=== PATIENT | male | born 1950 | race Caucasian/White ===

== ENCOUNTER → 2016-08-19 | Outpatient (REF) | payer MEDICARE, BC ==
[~2016-08-19] MED LIST: CIPR500T3 PO; FISH100049 PO; GLYB5TA PO; METF1000 PO; METO25TAB PO; OMEP40CA2 PO; PERCOCET PO; PRAD150C PO; PRAV10TA PO; VALS320T PO; ZYLO300T4 PO
== END ==
LOC: M SMT 16:45
PROVIDERS: ATTEND Urology
DX: R39.15 Urgency of urination (principal)
CPT/HCPCS: 51798; 81001; 87086; G0463

== ENCOUNTER → 2016-11-10 | Outpatient (CLI) | payer MEDICARE, BC ==
--- NOTE | 2016-11-10 10:36 | REP ---
CT ABDOMEN/PELVIS WITHOUT CONTRAST: CT abdomen/pelvis performed without IV contrast with sagittal and coronal reconstruction images. Minimal fibrotic changes are seen in the visualized lung bases. Liver, spleen, adrenals are grossly unremarkable. A few tiny scattered pancreatic calcifications are seen without pancreatic mass. Findings suggest prior pancreatitis. Kidneys demonstrate a few small intrarenal calculi. The largest is in the lower pole collecting system on the right measuring 6 mm in diameter. A few smaller calcifications in the region of the right renal hilum are felt to be vascular. The three other tiny rebeca-like calcifications in the region of the right renal pelvis could represent tiny intrarenal stones. There are also vascular calcifications in the right renal hilum. There is a 3 mm stone in the lower pole of the left renal collecting system. Again, about three other tiny rebeca-like calcifications in the region of the left renal collecting system could represent tiny renal stones. There is no hydroureteronephrosis. No ureteral calculi are seen. Abdominal aorta demonstrates ectasia up to 2.9 cm with moderate atherosclerotic calcifications. No adenopathy is seen. There is no free air. Tiny amount of free fluid is seen in the pelvis. I see no bowel wall thickening. The appendix is normal. The urinary bladder is not distended and not well evaluated. There are degenerative changes of the spine. There is spondylolysis of L5 with mild anterior grade 1 spondylolisthesis of L5 on S1. A sclerotic density in the right femoral head probably represents a benign bone island with no other lesions identified in the visualized osseous structures. There is sigmoid diverticulosis without acute diverticulitis. IMPRESSION: There appear to be a few small intrarenal calculi bilaterally. No ureteral calculi and no hydroureteronephrosis. Tiny amount of free fluid in the pelvis. Small right renal cyst. Signed by Michael Silva MD 11/10/2016 04:45 P
== END ==
LOC: M RAD 08:50
PROVIDERS: ATTEND Nurse Practitioner Women's Health
DX: N28.1 Cyst of kidney, acquired (principal); M43.06 Spondylolysis, lumbar region; K57.30 Diverticulosis of large intestine without perforation or abscess without bleeding; R10.9 Unspecified abdominal pain; R31.0 Gross hematuria
CPT/HCPCS: 74176; G0463

== ENCOUNTER → 2016-11-24 | Outpatient (REF) | payer MEDICARE, BC ==
[2016-11-24 20:22] LABS: CALCIUM OXALATE CRYSTALS SMALL
== END ==
LOC: M SMT 17:03
PROVIDERS: ATTEND Urology
DX: R31.0 Gross hematuria (principal)
CPT/HCPCS: 81001; 87086; G0463

== ENCOUNTER → 2016-12-14 | Outpatient (CLI) | payer MEDICARE, BC ==
--- NOTE | 2016-12-14 11:51 | REP ---
CT ABDOMEN AND PELVIS WITHOUT CONTRAST: CT abdomen and pelvis is performed without oral or IV contrast, with sagittal and coronal reconstruction images performed. Comparison is made with a prior study of 11/10/2016. The visualized lung bases are clear. The liver, gallbladder, spleen, adrenals and pancreas are grossly unremarkable. There is a cyst in the upper pole of the right kidney and another cyst is seen in the lower pole of the left kidney. Multiple intrarenal calcifications are stable. Some of these appear to represent vascular calcifications while others represent calculi. There are moderate atherosclerotic calcifications of the abdominal aorta. There is ectasia of the distal abdominal aorta up to a maximum AP diameter of 2.9 cm. There is no adenopathy. There is no free air or free fluid. No bowel wall thickening is seen. The appendix is normal. There appear to be sigmoid diverticula present. The urinary bladder is not well distended and not well evaluated. There is spondylolysis of L5 with minimal anterior spondylolisthesis of L5 on S1. Sclerotic densities in the right femoral head are again seen unchanged. These most likely represent benign bone islands. IMPRESSION: No change since the prior exam as discussed in detail above. Signed by Michael Silva MD 12/14/2016 12:54 P
== END ==
LOC: M RAD 10:55
PROVIDERS: ATTEND Urology
DX: R31.0 Gross hematuria (principal)

== ENCOUNTER → 2017-03-21 | Outpatient (REF) | payer MEDICARE, BC ==
[~2017-03-21] MED LIST changes: -METF1000 PO; +METF10004 PO; +METO25TA4 PO; -METO25TAB PO; -PRAV10TA PO; +PRAV10TA4 PO
== END ==
LOC: M SMT 14:04
PROVIDERS: ATTEND Urology
DX: Z08 Encounter for follow-up examination after completed treatment for malignant neoplasm (principal); Z85.46 Personal history of malignant neoplasm of prostate; Z79.899 Other long term (current) drug therapy
CPT/HCPCS: 51798; 81001; 87088; 87186; G0463

== ENCOUNTER → 2017-06-21 | Outpatient (REF) | payer MEDICARE, BC | LOC: M SMT 17:17 | PROVIDERS: ATTEND Nurse Practitioner Women's Health | DX: R31.29 Other microscopic hematuria (principal) ==

== ENCOUNTER → 2017-06-28 | Outpatient (CLI) | payer MEDICARE, BC ==
--- NOTE | 2017-06-29 15:39 | REP ---
CT abdomen and pelvis without IV or oral contrast: History: Flank pain. Kidney stones. Comparison CT study is from December 14, 2016. CT findings: Preliminary digital dimensional engineer radiograph shows an unremarkable bowel gas pattern. The lung bases are clear on axial CT images. No pleural effusion or upper abdominal ascites. The liver and the spleen are normal in size and homogeneous in texture. No adrenal lesion is seen. There is a faint opacity in the dependent portion of the gallbladder raising question of gallstones. No biliary ductal dilation is observed. No pancreatic mass is seen. There is fairly prominent vascular calcification in the upper abdominal arteries. Mild ectasia of the abdominal aorta is seen, no aneurysm. Maximum AP dimension 2.9 cm. There are multiple intrarenal calculi bilaterally. In the left kidney, there are 6 to 7 separate calculi ranging up to 5 mm in size. In the right kidney, there is a large calculus in the renal pelvis measuring 11 mm in size. This is associated with mild right-sided hydronephrosis. There are several other intrarenal calculi in the right kidney. No distal ureteral calculus is observed on either side. No bladder calculus is seen. Prostate appears to be surgically absent. Bone window settings show evidence of a bone island in the femoral head on the right, unchanged from December 14, 2016 prior study. There is bilateral L5 spondylolysis and a grade 1, 2 mm L5-S1 spondylolisthesis again noted. Degenerative disc changes are noted at L2-3, unchanged. No bony destructive lesion is appreciated. Impression: A 1.1 cm renal pelvic stone associated with mild right-sided hydronephrosis. Bilateral intrarenal calculi, multiple, on both sides. Normal appendix seen. Mild left colonic diverticulosis. No CT evidence of diverticulitis. Diffuse vascular calcification. Signed by Colin Maza MD 06/29/2017 04:58 P
== END ==
LOC: M RAD 13:00
PROVIDERS: ATTEND Nurse Practitioner Women's Health
DX: R10.9 Unspecified abdominal pain (principal); N20.0 Calculus of kidney

== ENCOUNTER 2017-07-27 10:56 | Day surgery (SDC) | payer MEDICARE, BC ==
[2017-07-27] MEDS ORDERED: ceFAZolin 2 GM/D5W 50 ML IV BAG (J0690 PER 500MG) As Ordered (11:08)
[2017-07-27] MEDS: LR 1,000 ML IV (11:42)
[2017-07-27 11:44] LABS: INR 1.23; PROTHROMBIN TIME 15.7 SECONDS (12.4-14.5)
[2017-07-27 11:46] LABS: BEDSIDE GLUCOSE 176 MG/DL (80-115)
[2017-07-27] MEDS ORDERED: LIDOCAINE 2% INJ 100 MG/5 ML SDV (FOR ANES.) As Ordered (16:11)
[2017-07-27] MEDS ORDERED: KETOROLAC 60 MG/2 ML VIAL (J1885) As Ordered (16:11)
[2017-07-27] MEDS ORDERED: fentaNYL 100 MCG/2 ML INJECTION (J3010) As Ordered (16:11)
[2017-07-27] MEDS ORDERED: PROPOFOL 200 MG/20 ML VIAL As Ordered (16:11)
[2017-07-27] MEDS ORDERED: ONDANSETRON 4MG/2ML VIAL (J2405) As Ordered (16:11)
[2017-07-27] MEDS ORDERED: MIDAZOLAM INJ 2 MG/2 ML VIAL (J2250) As Ordered (16:11)
[2017-07-27] MEDS ORDERED: dexameTHASONE 4 MG/ML 1ML VIAL (J1100) As Ordered (16:11)
[2017-07-27] MEDS: CONRAY-60 60% 50ML VIAL (Q9961) As Ordered (18:44)
[2017-07-27 19:06] LABS: BEDSIDE GLUCOSE 118 MG/DL (80-115)
[2017-07-27] MEDS ORDERED: LR 1,000 ML IV (19:15)
[2017-07-27] MEDS ORDERED: ONDANSETRON 4MG/2ML VIAL (J2405) IV (19:15)
[2017-07-27] MEDS ORDERED: fentaNYL 100 MCG/2 ML INJECTION (J3010) IV (19:15)
== END 2017-07-27 20:10 | disposition home or self-care (01) ==
LOC: M SDC 20:10
DX: N20.0 Calculus of kidney (principal); I10 Essential (primary) hypertension; I48.2 Chronic atrial fibrillation; C61 Malignant neoplasm of prostate; K21.9 Gastro-esophageal reflux disease without esophagitis; M10.9 Gout, unspecified; E11.9 Type 2 diabetes mellitus without complications; F17.200 Nicotine dependence, unspecified, uncomplicated; E78.5 Hyperlipidemia, unspecified; I49.1 Atrial premature depolarization; M19.90 Unspecified osteoarthritis, unspecified site; Z91.048 Other nonmedicinal substance allergy status; Z79.899 Other long term (current) drug therapy; Z79.84 Long term (current) use of oral hypoglycemic drugs
CPT/HCPCS: 52356

== ENCOUNTER → 2017-09-29 | Outpatient (REF) | payer MEDICARE ==
[2017-09-29 17:38] LABS: APPEARANCE, URINE CLEAR (CLEAR); BACTERIA, URINE AUTO NEGATIVE (NEGATIVE); BILIRUBIN, URINE AUTO NEGATIVE (NEGATIVE); BLOOD, URINE BLOOD 1+ (NEGATIVE); COLOR, URINE YELLOW (YELLOW); GLUCOSE, URINE (UA) AUTO 1+ mg/dL (NEGATIVE); KETONE, URINE AUTO NEGATIVE (NEGATIVE); LEUKOCYTE ESTERASE, URINE AUTO NEGATIVE (NEGATIVE); MUCUS, URINE SMALL (NEGATIVE); NITRITE, URINE AUTO NEGATIVE (NEGATIVE); PROTEIN, URINE AUTO NEGATIVE (NEGATIVE); RBC, URINE AUTO 7 /HPF (0-3); SPECIFIC GRAVITY URINE AUTO 1.017 (1.002-1.035); SQUAMOUS EPITHELIAL CELL UR AU 0 /HPF (0-6); WBC, URINE AUTO 3 /HPF (0-3)
== END ==
LOC: M SMT 16:54
DX: Z08 Encounter for follow-up examination after completed treatment for malignant neoplasm (principal); Z85.46 Personal history of malignant neoplasm of prostate; Z79.899 Other long term (current) drug therapy
CPT/HCPCS: 81001

== ENCOUNTER 2024-02-15 06:07 | Day surgery (SDC) | payer MEDICARE ==
[~2024-02-15] VITALS: Ht 180.3 cm; Wt 71.2 kg
[~2024-02-15 06:07] MED LIST changes: +ACET650T61 PO; +ALBU8.5H INH; +ALLO300T2 PO; +ATOR40TA75; +DULO1CAP6 PO; +ELIQ5TAB PO; +FLUT1BLS8 INH; +GABA600T4 PO; +GLYB-147 PO; -GLYB5TA PO; +GLYB5TAB6 PO; +LEVA1TAB2 PO; +LEVO50TA5 PO; +MAGN400C PO; +METO1TAB87 PO; +METO50TA7 PO; -OMEP40CA2 PO; +OMEP40CA4 PO; -PRAD150C PO; +PRAD150C6 PO; +VALA1TAB5 PO; -VALS320T PO; +VALS320T2 PO; +VITATAB73 PO; -ZYLO300T4 PO; +ZYLO300T6 PO
[2024-02-15] MEDS ORDERED: fentaNYL 100 MCG/2 ML INJECTION As Ordered ONE (07:14)
[2024-02-15] MEDS ORDERED: MIDAZOLAM INJ 2MG/2ML VIAL As Ordered ONE (07:14)
[2024-02-15] MEDS ORDERED: GLUCOSE 4 GM CHEW PO PRN (07:15)
[2024-02-15] MEDS ORDERED: GLUCAGON INJ 1MG VIAL SC PRN (07:15)
[2024-02-15] MEDS ORDERED: ROCURONIUM BROMIDE 50MG/5ML VIAL As Ordered ONE (07:15)
[2024-02-15] MEDS ORDERED: DEXTROSE 50% 50ML SYRINGE IV PRN (07:15)
[2024-02-15] MEDS ORDERED: propofoL 200 MG/20 ML VIAL As Ordered ONE (07:15)
[2024-02-15] MEDS ORDERED: ONDANSETRON 4MG 2ML VIAL As Ordered ONE (07:15)
[2024-02-15] MEDS ORDERED: LIDOCAINE 2% 100MG/5ML SDV (FOR ANES.) As Ordered ONE (07:15)
[2024-02-15] MEDS ORDERED: SUGAMMADEX SODIUM 500 MG/5 ML VIAL (BRIDION) As Ordered ONE (07:15)
[2024-02-15] MEDS: LR 1,000 ML IV SCH (07:23)
[2024-02-15] MEDS: ALBUTEROL SULFATE 2.5MG/0.5ML INH NEB SOLN INH STA (07:23)
[2024-02-15] MEDS: INSULIN LISPRO (NovoLOG) PER UNIT SC PRN (07:26)
[2024-02-15] MEDS: CETACAINE SPRAY 5GM As Ordered ONE (07:45)
[2024-02-15] MEDS: EPINEPHrine 1MG/10ML SYRINGE 1.5IN As Ordered ONE (07:45)
[2024-02-15] MEDS ORDERED: dexmedeTOMIDine (4MCG/ML)200MCG/50ML BTL (PRECEDEX) As Ordered ONE (07:49)
[2024-02-15] MEDS ORDERED: fentaNYL 100 MCG/2 ML INJECTION IV PRN (07:50)
[2024-02-15] MEDS ORDERED: LR 1,000 ML IV SCH (07:50)
[2024-02-15] MEDS ORDERED: ONDANSETRON 4MG 2ML VIAL IV PRN (07:50)
[2024-02-15] MEDS ORDERED: oxyCODONE 5MG TAB PO PRN (07:50)
[2024-02-15] MEDS: THROMBIN 5,000 UNITS VIAL As Ordered ONE (07:50)
[2024-02-15] MEDS ORDERED: PHENYLephrine 500MCG 5ML (100MCG/ML) SYRINGE As Ordered ONE (07:55)
[2024-02-15] MEDS ORDERED: ePHEDrine SULFATE 25 MG/5 ML(5MG/ML) SYRINGE As Ordered ONE (07:55)
[2024-02-15 09:08] VITALS: BP 122/85; TEMP 98; O2SAT 95
== END 2024-02-15 09:30 | disposition home or self-care (01) ==
LOC: M SDC 06:07
PROVIDERS: ATTEND Internal Medicine Pulmonary Disease
DX: C34.31 Malignant neoplasm of lower lobe, right bronchus or lung (principal); J44.9 Chronic obstructive pulmonary disease, unspecified; F17.218 Nicotine dependence, cigarettes, with other nicotine-induced disorders; I48.91 Unspecified atrial fibrillation; I10 Essential (primary) hypertension; E78.5 Hyperlipidemia, unspecified; E11.9 Type 2 diabetes mellitus without complications; M10.9 Gout, unspecified; E03.9 Hypothyroidism, unspecified; Z79.84 Long term (current) use of oral hypoglycemic drugs; Z79.01 Long term (current) use of anticoagulants; Z79.02 Long term (current) use of antithrombotics/antiplatelets; D64.9 Anemia, unspecified
CPT/HCPCS: 31625; 88305; J0171; J1815; J2250; J2371; J2405; J3010

== ENCOUNTER → 2024-03-13 | Outpatient (CLI) | payer MEDICARE ==
[~2024-03-13] MED LIST changes: +GABA-1490 PO; -GABA600T4 PO
== END ==
LOC: M PLARAD 12:29
PROVIDERS: ATTEND Internal Medicine Pulmonary Disease
DX: C34.81 Malignant neoplasm of overlapping sites of right bronchus and lung (principal)
CPT/HCPCS: 78815; A9552

== ENCOUNTER → 2024-03-20 | Outpatient (CLI) | payer MEDICARE ==
[~2024-03-20] MED LIST changes: +ISOVUE-370 76% 100ML VIAL As Ordered ONE
== END ==
LOC: M RAD 15:22
PROVIDERS: ATTEND Thoracic Surgery (Cardiothoracic Vascular Surgery)
DX: C34.91 Malignant neoplasm of unspecified part of right bronchus or lung (principal)

== ENCOUNTER → 2024-03-27 | Outpatient (CLI) | payer MEDICARE ==
[~2024-03-27] MED LIST changes: -ISOVUE-370 76% 100ML VIAL As Ordered ONE; +PROHANCE 279.3MG/ML 15ML VIAL As Ordered ONE
== END ==
LOC: M RAD 15:28
PROVIDERS: ATTEND Thoracic Surgery (Cardiothoracic Vascular Surgery)
DX: C34.91 Malignant neoplasm of unspecified part of right bronchus or lung (principal); Z86.73 Personal history of transient ischemic attack (TIA), and cerebral infarction without residual deficits; R90.82 White matter disease, unspecified
CPT/HCPCS: 70553; A9576

== ENCOUNTER 2024-03-28 06:00 | Day surgery (SDC) | payer MEDICARE ==
[~2024-03-28] VITALS: Ht 180.3 cm; Wt 70.1 kg
[~2024-03-28 06:00] MED LIST changes: -PROHANCE 279.3MG/ML 15ML VIAL As Ordered ONE
[2024-03-28] MEDS ORDERED: GLUCOSE 4 GM CHEW PO PRN (07:10)
[2024-03-28] MEDS ORDERED: DEXTROSE 50% 50ML SYRINGE IV PRN (07:10)
[2024-03-28] MEDS ORDERED: GLUCAGON INJ 1MG VIAL SC PRN (07:10)
[2024-03-28] MEDS ORDERED: LR 1,000 ML IV SCH (07:15)
[2024-03-28] MEDS ORDERED: ONDANSETRON 4MG 2ML VIAL As Ordered ONE (07:23)
[2024-03-28] MEDS ORDERED: LIDOCAINE 2% 100MG/5ML SDV (FOR ANES.) As Ordered ONE (07:23)
[2024-03-28] MEDS ORDERED: MIDAZOLAM INJ 2MG/2ML VIAL As Ordered ONE (07:23)
[2024-03-28] MEDS ORDERED: propofoL 200 MG/20 ML VIAL As Ordered ONE (07:23)
[2024-03-28] MEDS: ALBUTEROL SULFATE 2.5MG/0.5ML INH NEB SOLN NEB ONE (07:24)
[2024-03-28] MEDS: INSULIN LISPRO (NovoLOG) PER UNIT SC PRN (07:24)
[2024-03-28] MEDS ORDERED: fentaNYL 100 MCG/2 ML INJECTION As Ordered ONE (07:24)
[2024-03-28] MEDS ORDERED: ROCURONIUM BROMIDE 50MG/5ML VIAL As Ordered ONE (07:24)
[2024-03-28] MEDS ORDERED: ESMOLOL INJ 100MG/10ML VIAL As Ordered ONE (08:03)
[2024-03-28] MEDS ORDERED: METOPROLOL 5 MG/5 ML VIAL As Ordered ONE (08:07)
[2024-03-28] MEDS ORDERED: ePHEDrine SULFATE 25 MG/5 ML(5MG/ML) SYRINGE As Ordered ONE (08:21)
[2024-03-28] MEDS ORDERED: PHENYLephrine 500MCG 5ML (100MCG/ML) SYRINGE As Ordered ONE (08:21)
[2024-03-28] MEDS ORDERED: SUGAMMADEX SODIUM 500 MG/5 ML VIAL (BRIDION) As Ordered ONE (08:25)
[2024-03-28] MEDS: EPINEPHrine 1MG/10ML SYRINGE 1.5IN As Ordered ONE (08:40)
[2024-03-28] MEDS: THROMBIN 5,000 UNITS VIAL As Ordered ONE (08:40)
[2024-03-28] MEDS: CETACAINE SPRAY 5GM As Ordered ONE (08:40)
[2024-03-28 09:45] VITALS: BP 108/64
[2024-03-28] MEDS: METOPROLOL 5 MG/5 ML VIAL IV STA (09:45)
[2024-03-28 10:10] VITALS: BP 123/79; TEMP 97.2; O2SAT 93
== END 2024-03-28 10:30 | disposition home or self-care (01) ==
LOC: M SDC 06:00
PROVIDERS: ATTEND Internal Medicine Pulmonary Disease
DX: C77.1 Secondary and unspecified malignant neoplasm of intrathoracic lymph nodes (principal); C34.31 Malignant neoplasm of lower lobe, right bronchus or lung; I48.91 Unspecified atrial fibrillation; E11.9 Type 2 diabetes mellitus without complications; I10 Essential (primary) hypertension; E03.9 Hypothyroidism, unspecified; E78.00 Pure hypercholesterolemia, unspecified; Z79.01 Long term (current) use of anticoagulants; Z79.899 Other long term (current) drug therapy; Z79.890 Hormone replacement therapy; Z79.84 Long term (current) use of oral hypoglycemic drugs; M10.9 Gout, unspecified; Z79.51 Long term (current) use of inhaled steroids; Z85.46 Personal history of malignant neoplasm of prostate; F17.210 Nicotine dependence, cigarettes, uncomplicated; Z90.79 Acquired absence of other genital organ(s)
CPT/HCPCS: 31653; 71045; 88173; 88305; 88313; J0171; J1100; J1805; J1815; J2250; J2371; J2405; J3010

== ENCOUNTER → 2024-04-26 | Outpatient (CLI) | payer MEDICARE ==
[~2024-04-26] MED LIST changes: +ISOVUE-370 76% 100ML VIAL As Ordered ONE
== END ==
LOC: M RAD 09:58
PROVIDERS: ATTEND Thoracic Surgery (Cardiothoracic Vascular Surgery)
DX: C34.31 Malignant neoplasm of lower lobe, right bronchus or lung (principal)
CPT/HCPCS: 71260; Q9967

== ENCOUNTER 2024-06-14 13:52 | Inpatient (IN) | payer MEDICARE ==
[~2024-06-14] VITALS: Ht 172.7 cm; Wt 64.1 kg
[~2024-06-14 13:52] MED LIST changes: -ISOVUE-370 76% 100ML VIAL As Ordered ONE
[2024-06-14 14:52] LABS: VENOUS BASE EXCESS 2.1 (-2.0-2.0); VENOUS O2 SATURATION 38.9 % (60.0-80.0); VENOUS PARTIAL PRESSURE O2 23.3 mmHg (30.0-50.0); VENOUS PH 7.416 UNITS (7.330-7.430); VENOUS TOTAL CO2 28.3 MMOL/L (24.0-28.0)
[2024-06-14 14:57] LABS: BASO % 0.2 % (0.0-1.0); EOS # 0.1 10^3/uL (0.0-0.5); EOS % 0.8 % (0.0-3.0); HEMATOCRIT 36.6 % (42.0-52.0); HEMOGLOBIN 12.5 g/dl (13.5-17.5); LYMPH % 11.4 % (24.0-44.0); MEAN CORPUSCULAR HEMOGLOBIN 34.9 pg (27.0-33.0); MEAN CORPUSCULAR HGB CONC 34.2 g/dl (32.0-36.5); MEAN CORPUSCULAR VOLUME 102.2 fl (80.0-96.0); MONO # 0.7 10^3/uL (0.0-0.8); MONO % 8.2 % (2.0-8.0); NEUTROPHILS # 6.7 10^3/uL (1.5-8.5); NEUTROPHILS % 78.8 % (36.0-66.0); PLATELET COUNT, AUTOMATED 283 10^3/uL (150-450); RED BLOOD COUNT 3.58 10^6/uL (4.30-6.10); WHITE BLOOD COUNT 8.5 10^3/uL (4.0-10.0)
[2024-06-14 15:20] LABS: ETHYL ALCOHOL (ETHANOL) < 0.003 % (0.000-0.010)
[2024-06-14 15:21] LABS: ALBUMIN 1.9 G/DL (3.2-5.2); ALKALINE PHOSPHATASE 112 U/L (40-129); ALT/SGPT 21 U/L (7.0-40); AST/SGOT 27 U/L (<34); BILIRUBIN,DIRECT 0.2 MG/DL (<0.4); BILIRUBIN,TOTAL 0.5 MG/DL (0.3-1.2); BLOOD UREA NITROGEN 17 MG/DL (9-23); CALCIUM LEVEL 9.2 MG/DL (8.3-10.6); CARBON DIOXIDE LEVEL 27 MMOL/L (20-31); CHLORIDE LEVEL 101 MMOL/L (98-107); CREATININE FOR GFR 0.83 MG/DL (0.70-1.30); GLOMERULAR FILTRATION RATE > 60.0 (>42); GLUCOSE, FASTING 153 MG/DL (74-106); POTASSIUM SERUM 4.6 MMOL/L (3.5-5.1); SALICYLATE LEVEL < 3.0 MG/DL (<30); SODIUM LEVEL 136 MMOL/L (136-145); TOTAL PROTEIN 6.7 G/DL (5.7-8.2)
[2024-06-14 15:23] LABS: THYROID STIMULATING HORMONE 3.766 uIU/ML (0.55-4.78)
[2024-06-14 15:29] LABS: OSMOLALITY SERUM 293 MOSM/KG (280-301)
[2024-06-14 16:47] LABS: AMPHETAMINES LEVEL URINE NEGATIVE (NEGATIVE); BARBITURATES URINE NEGATIVE (NEGATIVE); BENZODIAZEPINES URINE NEGATIVE (NEGATIVE)
[2024-06-14 16:48] LABS: CANNABINOIDS URINE NEGATIVE (NEGATIVE); COCAINE METABOLITE URINE NEGATIVE (NEGATIVE); METHADONE URINE NEGATIVE (NEGATIVE); OPIATES URINE NEGATIVE (NEGATIVE); PHENCYCLIDINE URINE NEGATIVE (NEGATIVE)
[2024-06-14] MEDS ORDERED: DILT60CASR PO (17:16)
[2024-06-14] MEDS ORDERED: VITA100T28 PO (17:17)
[2024-06-14] MEDS ORDERED: JARD1TAB3 PO (17:18)
[2024-06-14] MEDS ORDERED: METO50TA7 PO (17:38)
[2024-06-14] MEDS ORDERED: HOME MED LIST COMPLETE! XX SCH (17:40)
[2024-06-14] MEDS ORDERED: ALBUTEROL 90 MCG/ACT 8GM HFA INHALER INH PRN (17:45)
[2024-06-14] MEDS ORDERED: LORazepam 2 MG TAB PO PRN (18:15)
[2024-06-14] MEDS: NS 1,000 ML IV SCH (18:40)
[2024-06-14] MEDS: FOLIC ACID 1MG TAB PO SCH (18:40)
[2024-06-14] MEDS: MULTIVITAMINS/MINERALS THERAP 1 TAB PO SCH (19:18)
[2024-06-14] MEDS: SYMBICORT 160/4.5MCG INHALER 6GM INH SCH (20:00)
[2024-06-14] MEDS: QUEtiapine FUMARATE 25 MG TAB PO SCH (20:48)
[2024-06-14] MEDS: GABAPENTIN 300 MG CAP PO SCH (20:48)
[2024-06-14] MEDS: APIXABAN 5 MG TAB (ELIQUIS) PO SCH (20:48)
[2024-06-14] MEDS: MAG SULF 1GM/100ML (MAG RUN) 1 GM in IV 1 EA IV SCH (20:48)
[2024-06-14 21:57] VITALS: BP 98/58; TEMP 97.2; O2SAT 93
[2024-06-14 22:20] VITALS: BP 98/58
[2024-06-14] MEDS: ACETAMINOPHEN 650MG ER TAB (TYLENOL ARTHRITIS) PO SCH (22:40)
[2024-06-15 04:02] VITALS: BP 102/66; TEMP 97; O2SAT 97
[2024-06-15 05:00] VITALS: BP 102/66
[2024-06-15] MEDS: LEVOTHYROXINE 50MCG TABLET (0.05MG) PO SCH (06:14)
[2024-06-15 07:45] LABS: HEMATOCRIT 31.4 % (42.0-52.0); HEMOGLOBIN 10.6 g/dl (13.5-17.5); MEAN CORPUSCULAR HEMOGLOBIN 34.6 pg (27.0-33.0); MEAN CORPUSCULAR HGB CONC 33.8 g/dl (32.0-36.5); MEAN CORPUSCULAR VOLUME 102.6 fl (80.0-96.0); PLATELET COUNT, AUTOMATED 253 10^3/uL (150-450); RED BLOOD COUNT 3.06 10^6/uL (4.30-6.10); WHITE BLOOD COUNT 6.9 10^3/uL (4.0-10.0)
[2024-06-15] MEDS: TIOTROPIUM INHALER/CAPSULE (SPIRIVA) INH SCH (08:00)
[2024-06-15 08:21] LABS: BLOOD UREA NITROGEN 15 MG/DL (9-23); CALCIUM LEVEL 8.4 MG/DL (8.3-10.6); CARBON DIOXIDE LEVEL 26 MMOL/L (20-31); CHLORIDE LEVEL 102 MMOL/L (98-107); CREATININE FOR GFR 0.85 MG/DL (0.70-1.30); GLOMERULAR FILTRATION RATE > 60.0 (>42); GLUCOSE, FASTING 93 MG/DL (74-106); POTASSIUM SERUM 3.8 MMOL/L (3.5-5.1); SODIUM LEVEL 137 MMOL/L (136-145)
[2024-06-15] MEDS: METOPROLOL TART 50 MG TAB PO SCH ×2 (09:00→16:21)
[2024-06-15] MEDS: THIAMINE 100 MG TAB PO SCH (09:48)
[2024-06-15] MEDS: DULoxetine 30MG CAPSULE (CYMBALTA) PO SCH (09:48)
[2024-06-15] MEDS: MAGNESIUM OXIDE 400MG TAB (MAG-OX) PO SCH (09:48)
[2024-06-15 09:52] VITALS: BP 113/75
[2024-06-15] MEDS: allopurinoL 300 MG TAB PO SCH (10:07)
[2024-06-15 14:00] VITALS: BP_SYST 114; BP_SYST 96; BP_DIAS 64; BP_DIAS 75; TEMP 97.2; O2SAT 97
[2024-06-15] MEDS: dilTIAZem 30 MG TAB PO SCH (17:46)
[2024-06-15] MEDS: cefTRIAXone SOD 1 GM in DEXTROSE 5% (D5W) ADV/MINI-BAG 50 ML IV SCH (17:46)
[2024-06-15] MEDS: SODIUM CHLORIDE HYPERTONIC 3% 4ML NEB SOL INH SCH (19:58)
[2024-06-15] MEDS: ALBUTEROL SULFATE 2.5MG/0.5ML INH NEB SOLN NEB PRN (19:58)
[2024-06-15 20:24] VITALS: BP 102/54; TEMP 97.2; O2SAT 95
[2024-06-15] MEDS: DOXYCYCLINE HYCLATE 100MG TABLET PO SCH (20:31)
[2024-06-15 22:05] VITALS: BP 102/54
[2024-06-16 03:30] VITALS: BP 106/57; TEMP 97.3; O2SAT 91
[2024-06-16 04:00] VITALS: BP 111/61; TEMP 97.3; O2SAT 94
[2024-06-16 06:43] VITALS: BP 109/69
[2024-06-16 08:19] LABS: HEMATOCRIT 29.6 % (42.0-52.0); HEMOGLOBIN 9.9 g/dl (13.5-17.5); MEAN CORPUSCULAR HEMOGLOBIN 34.1 pg (27.0-33.0); MEAN CORPUSCULAR HGB CONC 33.4 g/dl (32.0-36.5); MEAN CORPUSCULAR VOLUME 102.1 fl (80.0-96.0); PLATELET COUNT, AUTOMATED 271 10^3/uL (150-450); WHITE BLOOD COUNT 6.3 10^3/uL (4.0-10.0)
[2024-06-16 08:48] LABS: ALBUMIN 1.5 G/DL (3.2-5.2); ALKALINE PHOSPHATASE 101 U/L (40-129); ALT/SGPT 30 U/L (7.0-40); AST/SGOT 35 U/L (<34); BILIRUBIN,TOTAL 0.3 MG/DL (0.3-1.2); BLOOD UREA NITROGEN 12 MG/DL (9-23); CALCIUM LEVEL 7.9 MG/DL (8.3-10.6); CARBON DIOXIDE LEVEL 23 MMOL/L (20-31); CHLORIDE LEVEL 109 MMOL/L (98-107); CREATININE FOR GFR 0.72 MG/DL (0.70-1.30); GLOMERULAR FILTRATION RATE > 60.0 (>42); GLUCOSE, FASTING 124 MG/DL (74-106); POTASSIUM SERUM 4.1 MMOL/L (3.5-5.1); SODIUM LEVEL 140 MMOL/L (136-145); TOTAL PROTEIN 5.4 G/DL (5.7-8.2)
[2024-06-16 09:00] VITALS: BP 109/69
[2024-06-16 12:00] VITALS: BP 109/69; TEMP 97.5; O2SAT 95
[2024-06-16 12:08] VITALS: BP 109/69
[2024-06-16] MEDS ORDERED: DOXY100T PO (12:53)
[2024-06-16] MEDS ORDERED: CEFD1CAP9 PO (12:53)
[2024-06-16] MEDS ORDERED: PROB250C PO (13:01)
[2024-06-18 18:26] LABS: URINE STREP PNEUMONIAE ANTIGEN NOT DETECTED (NOT DETECT)
== END 2024-06-16 14:15 | disposition home or self-care (01) | DRG 194 ==
LOC: EDBD 13:52 → M ED 13:52 → M ED INP 17:38 → M MSPAV 21:43
PROVIDERS: ADMIT Internal Medicine; ATTEND Internal Medicine
DX: J18.9 Pneumonia, unspecified organism (principal); I48.20 Chronic atrial fibrillation, unspecified; G93.40 Encephalopathy, unspecified; J91.0 Malignant pleural effusion; R45.851 Suicidal ideations; C34.91 Malignant neoplasm of unspecified part of right bronchus or lung; J98.11 Atelectasis; I10 Essential (primary) hypertension; Z66 Do not resuscitate; J44.9 Chronic obstructive pulmonary disease, unspecified; E11.42 Type 2 diabetes mellitus with diabetic polyneuropathy; M10.9 Gout, unspecified; E83.42 Hypomagnesemia; E03.9 Hypothyroidism, unspecified; Z79.01 Long term (current) use of anticoagulants; Z79.890 Hormone replacement therapy; Z79.82 Long term (current) use of aspirin; Z79.899 Other long term (current) drug therapy; Z91.048 Other nonmedicinal substance allergy status

== ENCOUNTER → 2024-07-03 | Outpatient (CLI) | payer MEDICARE ==
[~2024-07-03] MED LIST changes: +ATOR40TA75 PO; +B-12100010 PO; +CEFD1CAP9 PO; +DILT60CASR PO; +DOXY100T PO; +FOLI1TAB11 PO; +JARD1TAB3 PO; +PROB250C PO; +VITA100T28 PO
== END ==
LOC: M ONCR 08:43
PROVIDERS: ATTEND General Practice
DX: C34.01 Malignant neoplasm of right main bronchus (principal); J90 Pleural effusion, not elsewhere classified; Z85.46 Personal history of malignant neoplasm of prostate; Z90.79 Acquired absence of other genital organ(s); Z79.01 Long term (current) use of anticoagulants; Z87.891 Personal history of nicotine dependence; Z80.8 Family history of malignant neoplasm of other organs or systems; Z91.048 Other nonmedicinal substance allergy status; Z79.899 Other long term (current) drug therapy; Z79.84 Long term (current) use of oral hypoglycemic drugs

== ENCOUNTER → 2024-07-12 | Outpatient (CLI) | payer MEDICARE ==
[2024-07-12 08:12] VITALS: BP 122/74; TEMP 97
[2024-07-12 08:43] VITALS: O2SAT 98
== END ==
LOC: M IRPRO 08:04
PROVIDERS: ATTEND General Practice
DX: C34.01 Malignant neoplasm of right main bronchus (principal); J90 Pleural effusion, not elsewhere classified

== ENCOUNTER → 2024-07-12 | Outpatient (CLI) | payer MEDICARE ==
[~2024-07-12] MED LIST changes: +LIDOCAINE 1% MDV 20ML VIAL As Ordered ONE; +MIDAZOLAM INJ 2MG/2ML VIAL As Ordered ONE; +NS (Normal Saline) 0.9% 1,000 ML IV SCH; +ceFAZolin 2 GM/D5W 50 ML IV BAG As Ordered ONE; +fentaNYL 100 MCG/2 ML INJECTION As Ordered ONE
[2024-07-12] MEDS: ceFAZolin SOD 2 GM in IV 1 EA IV ONE (08:59)
[2024-07-12 10:45] VITALS: BP 136/77; O2SAT 96
== END ==
LOC: M IRPRO 08:02
PROVIDERS: ATTEND Specialist
DX: J90 Pleural effusion, not elsewhere classified (principal); C34.01 Malignant neoplasm of right main bronchus
CPT/HCPCS: 32555; 88108; 88305; 88313; 99152; C1894; J0690; J1642; J2250; J3010

== ENCOUNTER 2024-07-25 07:43 | Outpatient (RCR) | payer MEDICARE ==
[~2024-07-25 07:43] MED LIST changes: -LIDOCAINE 1% MDV 20ML VIAL As Ordered ONE; -MIDAZOLAM INJ 2MG/2ML VIAL As Ordered ONE; -NS (Normal Saline) 0.9% 1,000 ML IV SCH; -ceFAZolin 2 GM/D5W 50 ML IV BAG As Ordered ONE; -fentaNYL 100 MCG/2 ML INJECTION As Ordered ONE
== END 2024-08-10 ==
LOC: M ONCR 07:43
PROVIDERS: ATTEND General Practice
DX: Z51.0 Encounter for antineoplastic radiation therapy (principal); C34.01 Malignant neoplasm of right main bronchus

== ENCOUNTER → 2024-09-07 | Outpatient (RCR) | payer MEDICARE ==
[~2024-09-07] MED LIST changes: +LIDO30CR18 TOP; +ONDA-284 PO; +PROC10TA5 PO
== END ==
LOC: M ONCR 08-15 10:37
PROVIDERS: ATTEND General Practice
DX: Z51.0 Encounter for antineoplastic radiation therapy (principal); C34.01 Malignant neoplasm of right main bronchus

== ENCOUNTER 2024-09-26 10:49 | Outpatient (RCR) | payer MEDICARE | END 2024-10-08 | LOC: M ONCR 10:49 | PROVIDERS: ATTEND General Practice | DX: Z51.0 Encounter for antineoplastic radiation therapy (principal); C34.01 Malignant neoplasm of right main bronchus ==

== ENCOUNTER → 2024-11-15 | Outpatient (CLI) | payer MEDICARE ==
[~2024-11-15] MED LIST changes: +ACYC200C8 PO; +BENA25CA4 PO; +ISOVUE-370 76% 100ML VIAL As Ordered ONE; +PRED50TA57 PO
== END ==
LOC: M RAD 09:16
PROVIDERS: ATTEND Nurse Practitioner Women's Health
DX: C34.91 Malignant neoplasm of unspecified part of right bronchus or lung (principal); M85.89 Other specified disorders of bone density and structure, multiple sites; I70.0 Atherosclerosis of aorta; I25.10 Atherosclerotic heart disease of native coronary artery without angina pectoris; K80.20 Calculus of gallbladder without cholecystitis without obstruction
CPT/HCPCS: 71260; Q9967

== ENCOUNTER → 2025-03-01 | Outpatient (CLI) | payer MEDICARE ==
[~2025-03-01] MED LIST changes: +ACYC200C10 PO; -ACYC200C8 PO; +ISOVUE-370 76% 100 ML VIAL As Ordered ONE; -ISOVUE-370 76% 100ML VIAL As Ordered ONE; +PRAV10TA PO; -PRAV10TA4 PO
== END ==
LOC: M RAD 10:33
PROVIDERS: ATTEND Specialist
DX: C34.91 Malignant neoplasm of unspecified part of right bronchus or lung (principal); J47.9 Bronchiectasis, uncomplicated; J98.11 Atelectasis
CPT/HCPCS: 71260; Q9967